=== PATIENT | female | born 1960 | race Caucasian/White ===

== ENCOUNTER 2018-06-29 16:46 | Emergency (ER) | payer BC ==
[~2018-06-29] VITALS: Ht 160 cm; Wt 68.0 kg
[2018-06-29 16:46] VITALS: BP 172/90
[2018-06-29] MEDS ORDERED: IV NORMAL SALINE 1,000ML 1,000 ML IV SCH (17:18)
--- NOTE | 2018-06-29 17:21 | EKG ---
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
--- NOTE | 2018-06-29 17:23 | PHYS DOC ---
Adult General Chief Complaint Chief Complaint: MULTIPLE COMPLAINTS HPI HPI Patient is a 57-year-old female who presents with complaint of fever, severe body aches and chills that started on Monday. She states his symptoms started off with just a sore throat that graduated to burning in her throat and her chest. She does indicate that she has a cough but states it is not productive. She complains of soreness in her chest from all the coughing. Patient states that she also has bilateral ear pain. She denies any vomiting or diarrhea. Review of Systems Review of Systems Constitutional: Positive fever and chills [] HENT: [place] of congestion, bilateral ear pain and sore throat [] Respiratory: Complains of nonproductive cough without shortness of breath [] Cardiovascular: No additional information not addressed in HPI [] GI: Denies abdominal pain, nausea, vomiting or diarrhea [] Musculoskeletal: Complains of body aches and joint pain [] Neurologic: [place] of headache without focal weakness or sensory changes [] All other systems were reviewed and found to be within normal limits, except as documented in this note. Current Medications Current Medications Current Medications Medications (Trade) Dose Ordered Sig/Aris Start Time Stop Time Status Last Admin Dose Admin Sodium Chloride 1,000 ml @ 1,000 mls/hr Q1H 06/29/18 17:18 18 18:17 UNV Physical Exam Physical Exam Constitutional: Well developed, well nourished, no acute distress, non-toxic appearance. [] HENT: Normocephalic, atraumatic, bilateral external ears normal, oropharynx moist, red swollen phary, nose normal. [] Eyes: PERRLA, EOMI, conjunctiva normal, no discharge. [] Neck: Normal range of motion, no tenderness, supple. [] Cardiovascular: Tachycardic rate with regular rhythm [] Lungs & Thorax: Fine rhonchi are noted in the lung bases to auscultation [] Abdomen: Bowel sounds normal, soft, no tenderness. [] Skin: Warm, dry, no erythema, no rash. [] Extremities: No tenderness, no cyanosis, no clubbing, ROM intact, no edema. [] Neurologic: Alert and oriented X 3, normal motor function, normal sensory function, no focal deficits noted. [] EKG EKG [] Radiology/Procedures Radiology/Procedures [] Course & Med Decision Making Course & Med Decision Making Pertinent Labs and Imaging studies reviewed. (See chart for details) She moved to room upon arrival was evaluated by your medical staff after which an IV was established and blood work drawn. A chest x-ray was obtained as well. Chest x-ray demonstrates no acute process. As of this time, remainder of workup is pending and patient is being signed out to Dr. Yolie Espinoza Dx : pharyngitis treatment : Augmentin Dragon Disclaimer Dragon Disclaimer This electronic medical record was generated, in whole or in part, using a voice recognition dictation system. Departure Departure: Impression: Primary Impression: Strep pharyngitis Disposition: HOME, SELF-CARE Condition: GOOD Referrals: NON,STAFF (PCP) Patient Instructions: Strep Throat Scripts Amoxicillin/Potassium Clav (AUGMENTIN 500-125 TABLET) 1 Each Tablet 1 TAB PO TID for ., #30 TAB Prov: YOLIE ESPINOZA MD 06/29/18 JACQUES FITZGERALD Jr. DO Jun 29, 2018 17:23 YOLIE ESPINOZA MD Jun 29, 2018 19:40
[2018-06-29] MEDS ORDERED: ACETAMINOPHEN 500 MG TABLET PO ONE (17:30)
[2018-06-29] MEDS ORDERED: IBUPROFEN 600 MG TABLET. PO ONE (17:30)
[2018-06-29 18:04] LABS: BASO % 0 % (0-3); EOS % 0 % (0-3); HEMOGLOBIN 15.2 g/dL (12.0-15.5); LYMPH # 0.9 x10^3/uL (1.0-4.8); LYMPH % 10 % (24-48); MEAN CORPUSCULAR HEMOGLOBIN 29 pg (25-35); MEAN CORPUSCULAR HGB CONC 34 g/dL (31-37); MEAN CORPUSCULAR VOLUME 87 fL (79-100); MONO # 0.8 x10^3/uL (0.0-1.1); MONO % 9 % (0-9); NEUT # 7.3 x10^3uL (1.8-7.7); NEUT % 81 % (31-73); PLATELET COUNT 170 x10^3/uL (140-400); RED BLOOD COUNT 5.15 x10^6/uL (3.50-5.40); WHITE BLOOD COUNT 9.1 x10^3/uL (4.0-11.0)
[2018-06-29 18:17] LABS: ALBUMIN 3.8 g/dL (3.4-5.0); CALCIUM 8.6 mg/dL (8.5-10.1); CREATININE 0.8 mg/dL (0.6-1.0); GFR 73.7; TOTAL BILIRUBIN 0.7 mg/dL (0.2-1.0); TOTAL PROTEIN 7.6 g/dL (6.4-8.2)
--- NOTE | 2018-06-29 18:53 | RAD ---
Examination: CHEST PA LATERAL History: Cough and fever x3 days. Hx smoker Comparison/Correlation: None Findings: PA and lateral views of chest were obtained. Heart size and pulmonary vasculature are normal. No infiltrate or pleural effusion. No pneumothorax. Impression: No active disease. Electronically signed by: Osmar Ospina MD (06/29/2018 6:49 PM) [facility]
[2018-06-29 19:01] LABS: INFLUENZA A PATIENT NEGATIVE (NEGATIVE); INFLUENZA B PATIENT NEGATIVE (NEGATIVE)
[2018-06-29] MEDS ORDERED: guaiFENesin/CODEINE 100mg/10mg 5 ML LIQUID PO STA (19:05)
[2018-06-29] MEDS ORDERED: IPRATRPIUM/ALBUTEROL 0.5/2.5MG 3 ML NEBU. NEB ONE (19:15)
[2018-06-29] MEDS ORDERED: AMOX1TAB58 PO (19:39)
[2018-06-29] MEDS ORDERED: IV NORMAL SALINE 50ML 50 ML ONE (19:39)
[2018-06-29] MEDS ORDERED: cefTRIAXone SODIUM 1 GM VIAL IV ONE (19:39)
== END 2018-06-29 19:50 | disposition home or self-care (01) ==
LOC: ER 16:46
DX: J02.0 Streptococcal pharyngitis (principal); B95.0 Streptococcus, group A, as the cause of diseases classified elsewhere
CPT/HCPCS: 36415; 71046; 80053; 83605; 85025; 85379; 87040; 87804; 87880; 93005; 94640; 96374; 99284; J0696; J7620; J7030